=== PATIENT | male | born 1975 | race Caucasian/White ===

== ENCOUNTER 2023-11-04 09:06 | Emergency (ER) | payer OTHER ==
[~2023-11-04] VITALS: Ht 172.7 cm; Wt 90.0 kg
[2023-11-04 09:09] VITALS: O2SAT 97
[2023-11-04] MEDS: SODIUM CHLORIDE 0.9% 1,000 ML IV ONE (09:30)
[2023-11-04 09:41] LABS: BASOPHILS % 0.9 % (0.0-2.0); EOSINOPHILS % 4.5 % (0.0-5.0); HEMATOCRIT. 43.9 % (42.0-52.0); HEMOGLOBIN. 15.1 g/dL (14.0-18.0); MEAN CORPUSCULAR HEMOGLOBIN 32.3 pg (28.0-32.0); MEAN CORPUSCULAR HGB CONC 34.3 g/dL (31.0-37.0); MEAN PLATELET VOLUME 7.2 fl (7.4-10.4); MONOCYTES % 7.6 % (2.0-8.0); PLATELET 260 x1000/uL (130-400); RED BLOOD CELL COUNT 4.67 mill/uL (4.7-6.1); RED CELL DISTRIBUTION WIDTH 13.8 % (11.6-14.6); WHITE BLOOD COUNT 9.2 x1000/uL (4.5-11.0)
[2023-11-04 09:48] LABS: CHLORIDE 108 mEq/L (98-107); POTASSIUM 3.7 mEq/L (3.5-5.1); SODIUM 140 mEq/L (136-145)
[2023-11-04 09:49] LABS: CARBON DIOXIDE 26 mEq/L (21-32)
[2023-11-04 09:50] LABS: CALCIUM 8.6 mg/dL (8.7-10.4)
[2023-11-04 09:54] LABS: CREATININE 0.9 mg/dL (0.6-1.3); GLUCOSE 183 mg/dL (70-105); UREA NITROGEN BLOOD 18 mg/dL (9-23)
[2023-11-04] MEDS: SODIUM CHLORIDE 0.9% 500 ML IV ONE (10:44)
[2023-11-04 11:17] VITALS: BP 106/76; PULSE 70; RESP 16; TEMP 36.33624; O2SAT 98
== END 2023-11-04 11:10 | disposition home or self-care (01) ==
LOC: ER 09:22
DX: R55 Syncope and collapse (principal); R53.1 Weakness; E11.9 Type 2 diabetes mellitus without complications; I10 Essential (primary) hypertension; R42 Dizziness and giddiness
CPT/HCPCS: 99284; 96360; 80048; 85025; 36415; 93005; J7040; J7030